=== PATIENT | male | born 1950 | race Caucasian/White ===

== ENCOUNTER 2016-06-16 07:05 | Day surgery (SDC) | payer MEDICARE ==
[~2016-06-16 07:05] MED LIST: TETRACAINE 0.5% OS PRN
[2016-06-16] MEDS: VIGAMOX OS SCH ×3 (07:45→07:55)
[2016-06-16] MEDS: AK-Dilate OS SCH ×3 (07:45→07:55)
[2016-06-16] MEDS: MYDRIACYL 1% OS SCH ×3 (07:45→07:55)
[2016-06-16] MEDS ORDERED: NACL BACTERIOSTATIC INFILTRATI ONE (07:52)
--- NOTE | 2016-06-16 07:53 | Anesthesia Consultation ---
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
--- NOTE | 2016-06-16 07:54 | Anesthesia Day of Surgery ---
Anesthesia Day of Surgery - Day of Surgery Patient Examined: Yes Patient H&P Reviewed: Yes Patient is NPO: Yes Beta Blockers: Yes
[2016-06-16] MEDS ORDERED: VERSED ONE (08:39)
[2016-06-16] MEDS ORDERED: ADRENALIN IV ONE (09:36)
[2016-06-16] MEDS ORDERED: XYLOCAINE 1% MPF 5 mL IJ ONE (09:36)
[2016-06-16] MEDS ORDERED: ADRENALINE P/F IV ONE (09:36)
--- NOTE | 2016-06-16 09:50 | Operative Report ---
Operative Report Operative Report: PATIENT'S NAME: DATE OF : DATE OF SURGERY: 06/16/2016 PREOPERATIVE DIAGNOSIS: Cataract with posterior synechiae left eye POSTOPERATIVE DIAGNOSIS: Same OPERATIVE PROCEDURE: Phacoemulsification with intraocular lens implantation, with synechiolysis left eye SURGEON: Eden Paulino M.D. SENIOR GROUP MANAGER SURGEON: None Lens: AO60 22.0 D ANESTHESIA: Monitored anesthesia care in combination with topical and intracameral anesthesia because of the established specific risk of reflux, arrhythmias, or anxiety attacks associated with ocular manipulation, as well as the difficulty of the tomahawk weapon system operator to manage such potentially catastrophic events while simultaneously attempting to complete the surgical procedure and was deemed necessary for the patient's safety to have an Clinical Applications Specialist present during the procedure whenever possible. An Clinical Applications Specialist was utilized to regulate the intravenous sedation of the patient so the patient was cooperative yet not asleep in order for the patient to successfully maintain fixation of the eye on the operating light of the microscope. COMPLICATIONS: [No surgical complications] No blood loss. ALLERGIES: [No known drug allergies] PROGNOSIS: Excellent INDICATIONS FOR SURGERY: The patient is undergoing surgery in the hopes of eliminating or improving these visual difficulties. PROCEDURE: Prior to surgery, the patient was instructed to use Acular drops one drop four times daily before surgery. After arriving at the surgery center , the patient was given topical anesthetic and dilating drops, as noted in the record. The patient was then taken into the operating room and given more anesthetic drops. The eyelids, lashes, and lid margins were scrubbed with Betadine solution, and the patient was draped. The Nurse Clinical Applications Specialist administered IV sedation and monitored the patient during the procedure. The eye was then fixated with a 0.12, and a stab incision was made in the peripheral clear cornea into the anterior chamber. This was made on my left side. Viscoelastic was next used to fill the anterior chamber. The eye was once again fixated with the 0.12 forceps and a keratome was used make an incision in clear cornea peripherally on my right hand side temporally. The synechae were broken with cannula tip. 1:1000 epinephrine was injected but pupil remained small. Due to a small pupil size, it was deemed necessary to dilate the pupil mechanically so that the surgery could be more safely and effectively carried out. A [employer] corneal dilator was brought into the operative field and it was inserted into the keratome incision. The hook on the distal end of the dilator was used to hook the pupil in the meridian of the keratome incision and to pull the iris/pupil, which was hooked, back to the site of the keratome incisions entry into the anterior chamber. At the same time, three prongs were advanced out of the dilators tip. Each of these three prongs had a Y shaped end which was used to catch the iris at three locations (one directly opposite from the dilators tip and then one on each side almost bisecting the distance between the middle prong and the hook on the distal end of the dilator. These three prongs were advanced to the limbus. This combined action of the four points of fixation stretched the pupil open without tearing the tissue, but some mild bleeding did occur. The three prongs were retracted back into the dilator and the hook on the distal end of the dilator was turned and unhooked from the iris/pupil and the dilator was removed from the eye. The pupil remained dilated and the surgery was able to be carried out. The capsule forceps were used to open the central anterior capsule and then make a continuous round capsulotomy. Hydrodissection was carried out utilizing a cannula and balanced salt solution to delineate the cortical material from the capsule and the nucleus from the cortical material. The phaco tip was introduced into the eye and used to remove the anterior cortical material in the area of the capsulotomy. Then the phaco tip was buried into the nucleus, and a chopping instrument was introduced into the eye and used to provide countertraction in the nucleus between this instrument and the phaco tip fracturing the nucleus. This procedure was repeated multiple times, providing multiple small segments of the lens, and then the phaco tip was used to remove each of these segments. An I/A tip was then used to remove the remaining cortex. The anterior chamber was refilled with viscoelastic. An one-piece, acrylic intraocular lens was then placed into an inserting cartridge. The tip of the inserting cartridge was introduced into the keratome incision and into the anterior chamber. The implant was gently advanced through the cartridge and into the eye, where it unfolded, and both haptics were placed in the capsular bag, where it centered nicely and appeared to be well fixated. After placement of the intraocular lens, the malugyan ring was removed then the I~and~A handpiece was placed back into the eye and used to remove the viscoelastic, including viscoelastic that was behind the optic of the intraocular lens. The anterior chamber was then filled with balanced salt solution, and hydration of the wound was used to cause swelling of the wound and more appropriate watertight closure. When the wound was found to be firm, the patient was asked to comment on how bright the light was. If there was no light perception at all or if the light was substantially dimmer than during the rest of the surgery, the amount of fluid in the eye was decompressed to lower the intraocular pressure until the patient could see the bright light again. This was done to avoid any damage or decreased blood flow to the optic nerve. MEDICATIONS APPLIED AT END OF SURGERY: One drop of Pred Forte and Vigamox The patient was given a shield to wear at night and was instructed not to rub or push on the eye. DISCHARGE SUMMARY: The patient was released in stable condition. The patient and those with the patient were given a written sheet of postoperative instructions and counseling on any abnormal laboratory studies. The patient is to see us tomorrow for follow-up in the office and is to call immediately for any difficulties. Eden Paulino M.D. Date
--- NOTE | 2016-06-16 09:52 | Short Stay Summary ---
Short Stay Documentation Date of service: 06/16/16 - History H&P: obtained from office - Allergies and Medications Current Medications: Allergies No Known Allergies Allergy (Verified 06/13/16 10:56) Home Medications Medication Instructions Recorded Confirmed Last Taken Type Aspirin [Adult Low Dose Aspirin EC] 81 mg PO QDAY 06/13/16 06/13/16 06/15/16 History Insulin Glargine [Lantus] 0 units SQ QHS 06/13/16 06/13/16 06/15/16 History Lisinopril [Zestril] 40 mg PO QDAY 06/13/16 06/13/16 06/16/16 06:00 History Metoprolol [Lopressor] 25 mg PO QDAY 06/13/16 06/13/16 06/16/16 06:00 History amLODIPine 10 mg PO QDAY 06/13/16 06/13/16 06/16/16 06:00 History Active Medications Moxifloxacin HCl (Vigamox) 1 drops OS Q5MIN [facility] Stop: 06/16/16 23:59 Last Admin: 06/16/16 07:55 Dose: 1 drops Phenylephrine HCl (Ak-Dilate) 1 drops OS Q5MIN [facility] Stop: 06/16/16 16:00 Last Admin: 06/16/16 07:55 Dose: 1 drops Prednisolone Acetate (Pred Forte 1%) 1 drops OS QID [facility] Tetracaine HCl (Tetracaine 0.5%) 1 drops OS Q5M PRN PRN Reason: Pain Stop: 06/16/16 16:00 Last Admin: 06/16/16 07:45 Dose: 1 drops Tropicamide (Mydriacyl 1%) 1 drops OS Q5MIN [facility] Stop: 06/16/16 16:00 Last Admin: 06/16/16 07:55 Dose: 1 drops - Brief post op/procedure progress note Date of procedure: 06/16/16 Pre-op diagnosis: cataract and post synechae left eye Post-op diagnosis: same Procedure: Same phacoemulsification with intraocular lens insertion and synechiolysis left eye Anesthesia: MAC Surgeon: JOEY RICK Estimated blood loss: none Pathology: none Condition: stable - Disposition Condition at discharge: Good Disposition: DISCHARGED TO HOME OR SELFCARE - Discharge Diagnoses (1) Cataract Status: Resolved (2) Synechiae of iris Status: Acute (3) Synechia, posterior Status: Acute Qualifiers: Laterality: left Qualified Code(s): H21.542 - Posterior synechiae (iris), left eye
[2016-06-16] MEDS ORDERED: PRED FORTE 1% OS SCH (10:00)
--- NOTE | 2016-06-16 10:14 | Post Anesthesia Evaluation ---
- Post Anesthesia Evaluation Patient Participated: Yes Airway Patent: Yes Stable Respiratory Function: Yes Temp > 96.8F: Yes Pain Manageable: Yes Adequeate Hydration: Yes Anesthesia Complications: No Block Receding Appropriately: Not Applicable
[2016-06-16 10:29] VITALS: BP 138/63
== END 2016-06-16 10:45 | disposition home or self-care (01) ==
LOC: OR 07:05 → EDBD 10:00 → OR 10:45
DX: E11.36 Type 2 diabetes mellitus with diabetic cataract (principal); H21.542 Posterior synechiae (iris), left eye; H21.562 Pupillary abnormality, left eye; I10 Essential (primary) hypertension; M13.88 Other specified arthritis, other site; K21.9 Gastro-esophageal reflux disease without esophagitis; Z79.4 Long term (current) use of insulin; Z87.891 Personal history of nicotine dependence
CPT/HCPCS: 66982; 82962; J0171; J2250; V2632